=== PATIENT | female | born 1955 | race Caucasian/White ===

== ENCOUNTER 2017-08-06 12:14 | Inpatient (IN) | payer OTHER ==
[~2017-08-06] VITALS: Ht 152.4 cm; Wt 142.1 kg
[2017-08-06 13:16] LABS: BASOPHIL 0.6 % (0-2); EOSINOPHIL 3.4 % (0-5); HCT 40.2 % (37.0-47.0); HGB 13.4 g/dl (12.5-16.0); LYMPHOCYTE 33.3 % (15-48); MCH 30.4 pg (25.0-31.0); MCHC 33.3 g/dL (32.0-36.0); MCV 91.2 fL (78.0-100.0); MPV 9.8 fL (6.0-9.5); NEUTROPHIL 57.7 % (41-80); PLT 240 K/uL (150-400); RBC 4.41 M/uL (4.20-5.40); WBC 5.1 K/uL (4.0-10.5)
[2017-08-06 13:30] LABS: CREATININE 0.6 mg/dL (0.5-1.0); POTASSIUM 4.4 mmol/L (3.5-5.1)
[2017-08-06 14:49] LABS: INR 1.05 (0.9-1.2); PROTHROMBIN TIME 12.8 SECONDS (11.4-13.2)
[2017-08-06 14:50] LABS: PTT 27.9 SECONDS (24.3-32.1)
[2017-08-07 05:48] LABS: HCT 36.5 % (37.0-47.0); HGB 11.9 g/dl (12.5-16.0); MCH 30.1 pg (25.0-31.0); MCHC 32.6 g/dL (32.0-36.0); MCV 92.2 fL (78.0-100.0); MPV 9.9 fL (6.0-9.5); RBC 3.96 M/uL (4.20-5.40); RDW 12.8 % (11.5-14.0); WBC 3.6 K/uL (4.0-10.5)
[2017-08-07 06:05] LABS: CREATININE 1.4 mg/dL (0.5-1.0); MAGNESIUM 1.43 mg/dL (1.40-2.10); POTASSIUM 4.6 mmol/L (3.5-5.1)
== END 2017-08-07 09:53 | disposition other institution (70) | DRG 281 ==
LOC: FER 12:14 → FICU 14:40
PROVIDERS: Internal Medicine; ADMIT Internal Medicine
DX: I21.4 Non-ST elevation (NSTEMI) myocardial infarction (principal); N17.9 Acute kidney failure, unspecified; E11.22 Type 2 diabetes mellitus with diabetic chronic kidney disease; N18.3 Chronic kidney disease, stage 3 (moderate); I13.10 Hypertensive heart and chronic kidney disease without heart failure, with stage 1 through stage 4 chronic kidney disease, or unspecified chronic kidney disease; Z68.44 Body mass index [BMI] 60.0-69.9, adult; E66.9 Obesity, unspecified; J44.9 Chronic obstructive pulmonary disease, unspecified; D63.1 Anemia in chronic kidney disease; I25.10 Atherosclerotic heart disease of native coronary artery without angina pectoris; E78.5 Hyperlipidemia, unspecified; E03.9 Hypothyroidism, unspecified; F41.9 Anxiety disorder, unspecified; G89.4 Chronic pain syndrome; M19.90 Unspecified osteoarthritis, unspecified site; N20.0 Calculus of kidney; E53.8 Deficiency of other specified B group vitamins; Z90.5 Acquired absence of kidney; Z80.3 Family history of malignant neoplasm of breast; Z79.82 Long term (current) use of aspirin; Z80.8 Family history of malignant neoplasm of other organs or systems; Z83.3 Family history of diabetes mellitus; Z81.1 Family history of alcohol abuse and dependence; Z79.4 Long term (current) use of insulin; Z88.5 Allergy status to narcotic agent
CPT/HCPCS: 36415; 71010; 78452; 80048; 82550; 82962; 83735; 83880; 84484; 85025; 85610; 85730; 93005; 93970; 96372; A9500; J1170; J1885; J2270; J2405

== ENCOUNTER 2021-03-21 15:04 | Day surgery (SDCO) | payer MEDICARE, SELFPAY ==
[~2021-03-21] VITALS: Ht 153.7 cm; Wt 149.3 kg
[~2021-03-21 15:04] MED LIST: ACETAMINOPHEN325 MG PO; ALLOPURINOL300 MG PO; AMARYL2 MG PO; ASCORBIC ACID500 MG PO; ASPIRIN EC325 MG PO; AZITHROMYCIN250 MG PO; BYSTOLIC10 MG PO; CATAPRES0.1 MG PO; CERTAGEN1 EACH PO; COLACE100 MG PO; EFFEXOR XR75 MG PO; EFFEXOR-XR 75 M75 MG PO; FLUOXETINE HCL20 MG PO; HYDRALAZINE25 MG PO; IMDUR 30MG TABL30 MG PO; ISMO20 MG PO; KEFLEX250 MG PO; KLONOPIN0.5 MG PO; LACTINEX1 EACH PO; LANTUS **100 UNITS/ SC; LASIX40 MG PO; LAXATIVE; MIRALAX17 GM PO; NEURONTIN300 MG PO; NIFEREX150 MG PO; NITROQUIK SL0.4 MG SL; NOVOLOG VI100 UNIT/1 SQ; NOVOLOG100 UNIT/1 SC; NOXIFOL-D32500 UNIT PO; OXY-IR 5MG5 MG PO; PEPCID AC20 MG PO; PREVACID30 M1 PO; SYMBICORT 80-10.2 GM INH; SYNTHROID125 MCG PO; TRAZODONE 100M100 MG PO; TRAZODONE 50MG50 MG PO; TRIMETHOPRIM100 MG PO; ULTRAM50 MG PO; VENTOLIN HFA IN18 GM INH; VITAMIN D-32000 UNIT PO; VITAMIN D1000 UNI1 PO; Vitamin D3; ZINC50 M1 PO; ZPAK PO
[2021-03-21 16:15] LABS: BASOPHIL 0.7 % (0-2); EOSINOPHIL 3.4 % (0-5); HCT 36.4 % (37.0-47.0); HGB 11.8 g/dl (12.5-16.0); LYMPHOCYTE 36.8 % (15-48); MCH 30.4 pg (25.0-31.0); MCHC 32.4 g/dL (32.0-36.0); MCV 93.8 fL (78.0-100.0); MONOCYTE 6.9 % (0-12); NRBC 0; PLT 212 K/uL (150-400); RBC 3.88 M/uL (4.20-5.40); RDW 14.6 % (11.5-14.0); WBC 4.4 K/uL (4.0-10.5)
[2021-03-21 16:27] LABS: ALBUMIN 3.1 g/dL (3.4-5.0); BILIRUBIN - TOTAL 0.3 mg/dL (0.2-1.0); BUN/CREAT RATIO (CALC) 18.4 RATIO; CREATININE 1.25 mg/dL (0.51-0.95); GLOBULIN (CALCULATION) 3.3 g/dL; POTASSIUM 4.7 mmol/L (3.5-5.1); TOTAL PROTEIN 6.4 g/dL (6.4-8.2)
[2021-03-21 16:41] LABS: PRO-BNP 419 pg/mL (<125)
[2021-03-21 20:23] LABS: CORONAVIRUS 2019 SARS-COV-2 NEGATIVE (NEGATIVE); INFLUENZA A NAA NEGATIVE (NEGATIVE)
[2021-03-21] MEDS ORDERED: NORVASC 10MG TA10 MG PO (22:19)
[2021-03-21] MEDS ORDERED: PEPCID AC20 MG PO (22:19)
[2021-03-21] MEDS ORDERED: LASIX40 MG PO (22:20)
[2021-03-21] MEDS ORDERED: HYDRALAZINE25 MG PO (22:20)
[2021-03-21] MEDS ORDERED: ALLOPURINOL300 MG PO (22:20)
[2021-03-21] MEDS ORDERED: PROZAC20 MG PO (22:21)
[2021-03-21] MEDS ORDERED: TOPROL XL 25MG25 MG PO (22:22)
[2021-03-21] MEDS ORDERED: ISOSORBIDE MONO30 MG PO (22:22)
[2021-03-21] MEDS ORDERED: NEURONTIN300 MG PO (22:22)
[2021-03-21] MEDS ORDERED: ASCORBIC ACID500 MG PO (22:23)
[2021-03-21] MEDS ORDERED: CEFDINIR300 MG PO (22:23)
[2021-03-21] MEDS ORDERED: SINGULAIR10 MG PO (22:23)
[2021-03-21] MEDS ORDERED: AMARYL2 MG PO (22:24)
[2021-03-21] MEDS ORDERED: PHENERGAN6.25 MG/5 PO (22:26)
[2021-03-21] MEDS ORDERED: SYNTHROID125 MCG PO (22:27)
[2021-03-21] MEDS ORDERED: CRESTOR10 MG PO (22:27)
[2021-03-21] MEDS ORDERED: TRELEGY ELLIPT1 EAC1 INH (22:28)
[2021-03-21] MEDS ORDERED: ASPIRIN EC81 MG PO (22:28)
[2021-03-22 06:00] LABS: BASOPHIL 0.8 % (0-2); EOSINOPHIL 4.5 % (0-5); HCT 35.4 % (37.0-47.0); HGB 11.5 g/dl (12.5-16.0); LYMPHOCYTE 43.3 % (15-48); MCH 30.6 pg (25.0-31.0); MCHC 32.5 g/dL (32.0-36.0); MCV 94.1 fL (78.0-100.0); MONOCYTE 7.1 % (0-12); MPV 9.5 fL (6.0-9.5); NRBC 0; PLT 186 K/uL (150-400); RBC 3.76 M/uL (4.20-5.40); RDW 14.6 % (11.5-14.0); WBC 3.5 K/uL (4.0-10.5)
[2021-03-22 07:04] LABS: BUN/CREAT RATIO (CALC) 15.8 RATIO; CREATININE 1.2 mg/dL (0.51-0.95); POTASSIUM 4.7 mmol/L (3.5-5.1)
[2021-03-22 12:01] LABS: IRON % SATURATION 19.9 %SAT (20-50)
[2021-03-22 12:37] LABS: FT4 (FREE T4) 1.2 ng/dL (0.76-1.46)
[2021-03-22] MEDS ORDERED: NITROQUIK SL0.4 MG SL (13:45)
[2021-03-22] MEDS ORDERED: ISOSORBIDE MONO60 M1 PO (13:45)
--- NOTE | 2021-03-22 16:47 | NUR ---
DISCUSSED DISCHARGE INSTRUCTIONS WITH PATIENT. IV X 2 REMOVED. PT IN [place] CONDITTION. NOTIFIED OF APPOINTMENTS WELL STRESS TEST PENDING. GOING HOME WITH
== END 2021-03-22 16:30 | disposition home or self-care (01) ==
LOC: FER 15:04 → FMS 20:42
PROVIDERS: Emergency Medicine; Emergency Medicine Emergency Medical Services; Nurse Practitioner; ADMIT Internal Medicine
DX: R07.89 Other chest pain (principal); E11.40 Type 2 diabetes mellitus with diabetic neuropathy, unspecified; I12.9 Hypertensive chronic kidney disease with stage 1 through stage 4 chronic kidney disease, or unspecified chronic kidney disease; E11.22 Type 2 diabetes mellitus with diabetic chronic kidney disease; N18.30 Chronic kidney disease, stage 3 unspecified; G47.33 Obstructive sleep apnea (adult) (pediatric); R53.1 Weakness; J06.9 Acute upper respiratory infection, unspecified; I25.2 Old myocardial infarction; J44.9 Chronic obstructive pulmonary disease, unspecified; I42.9 Cardiomyopathy, unspecified; E03.9 Hypothyroidism, unspecified; M19.90 Unspecified osteoarthritis, unspecified site; M79.7 Fibromyalgia; E78.5 Hyperlipidemia, unspecified; R06.00 Dyspnea, unspecified; I77.819 Aortic ectasia, unspecified site; E66.01 Morbid (severe) obesity due to excess calories; Z86.73 Personal history of transient ischemic attack (TIA), and cerebral infarction without residual deficits; Z79.82 Long term (current) use of aspirin; Z79.84 Long term (current) use of oral hypoglycemic drugs; Z79.899 Other long term (current) drug therapy; Z88.1 Allergy status to other antibiotic agents; Z90.5 Acquired absence of kidney; Z20.822 Contact with and (suspected) exposure to COVID-19
CPT/HCPCS: 36415; 71045; 71275; 80048; 80053; 80061; 82607; 83540; 83550; 83880; 84439; 84443; 84484; 85025; 85379; 93005; G0378; J1650; J2270; J2405; J7030; Q9967; U0002

== ENCOUNTER 2021-07-14 17:22 | Emergency (ER) | payer MEDICARE ==
[~2021-07-14 17:22] MED LIST changes: +ASPIRIN EC81 MG PO; +CEFDINIR300 MG PO; +CRESTOR10 MG PO; +ISOSORBIDE MONO30 MG PO; +ISOSORBIDE MONO60 M1 PO; +NORVASC 10MG TA10 MG PO; +PHENERGAN6.25 MG/5 PO; +PROZAC20 MG PO; +SINGULAIR10 MG PO; +TOPROL XL 25MG25 MG PO; +TRELEGY ELLIPT1 EAC1 INH
[2021-07-14 19:55] LABS: BASOPHIL 0.8 % (0-2); EOSINOPHIL 3.7 % (0-5); HCT 35.2 % (37.0-47.0); HGB 11.5 g/dl (12.5-16.0); LYMPHOCYTE 23.1 % (15-48); MCH 29.7 pg (25.0-31.0); MCHC 32.7 g/dL (32.0-36.0); MONOCYTE 5.6 % (0-12); MPV 9.5 fL (6.0-9.5); NEUTROPHIL 65.8 % (41-80); NRBC 0; PLT 226 K/uL (150-400); RBC 3.87 M/uL (4.20-5.40); RDW 14.2 % (11.5-14.0); WBC 5.9 K/uL (4.0-10.5)
[2021-07-14 20:27] LABS: ALBUMIN 3.1 g/dL (3.4-5.0); BILIRUBIN - TOTAL 0.3 mg/dL (0.2-1.0); BUN/CREAT RATIO (CALC) 22.7 RATIO; CREATININE 1.41 mg/dL (0.51-0.95); GLOBULIN (CALCULATION) 3.7 g/dL; POTASSIUM 4.4 mmol/L (3.5-5.1); TOTAL PROTEIN 6.8 g/dL (6.4-8.2)
[2021-07-14 20:31] LABS: LACTIC ACID 1.8 mmol/L (0.4-1.9)
[2021-07-14 23:42] LABS: BILIRUBIN NEGATIVE (NEGATIVE); BLOOD NEGATIVE Ery/uL (NEGATIVE); CLARITY CLEAR (CLEAR); GLUCOSE (U) TRACE mg/dL (NORMAL); LEUKOCYTES TRACE Leu/uL (NEGATIVE); NITRITE POSITIVE (NEGATIVE); PROTEIN 1+ mg/dL (NEGATIVE); pH 5.5 (5.0-9.0)
[2021-07-14 23:43] LABS: COLOR ORANGE (YELLOW)
[2021-07-14 23:51] LABS: BACTERIA TRACE; URINARY RBC RARE; URINARY WBC RARE
[2021-07-14] MEDS ORDERED: CEPHALEXIN500 M1 PO (23:53)
[2021-07-14] MEDS ORDERED: PHENERGAN12.5 M1 PO (23:53)
[2021-07-14] MEDS ORDERED: NORCO 5-325 TA1 EACH PO ×2 (23:53→23:55)
== END 2021-07-15 00:12 | disposition home or self-care (01) ==
LOC: FER 17:22
PROVIDERS: Emergency Medicine Emergency Medical Services
DX: N30.00 Acute cystitis without hematuria (principal); I12.9 Hypertensive chronic kidney disease with stage 1 through stage 4 chronic kidney disease, or unspecified chronic kidney disease; N18.30 Chronic kidney disease, stage 3 unspecified; E11.22 Type 2 diabetes mellitus with diabetic chronic kidney disease; E78.5 Hyperlipidemia, unspecified; E66.01 Morbid (severe) obesity due to excess calories; J44.9 Chronic obstructive pulmonary disease, unspecified; Z90.49 Acquired absence of other specified parts of digestive tract; Z88.1 Allergy status to other antibiotic agents
CPT/HCPCS: 36415; 80053; 81001; 83605; 85025; 87088; J0696; J1170; J2550; J7030

== ENCOUNTER 2021-07-26 23:13 | Emergency (ER) | payer MEDICARE ==
[~2021-07-26 23:13] MED LIST changes: +CEPHALEXIN500 M1 PO; +NORCO 5-325 TA1 EACH PO; +PHENERGAN12.5 M1 PO
[2021-07-27 01:19] LABS: BASOPHIL 0.4 % (0-2); EOSINOPHIL 1.3 % (0-5); HCT 34.3 % (37.0-47.0); HGB 11.1 g/dl (12.5-16.0); LYMPHOCYTE 24.1 % (15-48); MCH 29.7 pg (25.0-31.0); MCHC 32.4 g/dL (32.0-36.0); MCV 91.7 fL (78.0-100.0); MPV 9.5 fL (6.0-9.5); NEUTROPHIL 66.8 % (41-80); NRBC 0; PLT 197 K/uL (150-400); RBC 3.74 M/uL (4.20-5.40); RDW 14.6 % (11.5-14.0); WBC 5.3 K/uL (4.0-10.5)
[2021-07-27 01:39] LABS: INR 1.01 (0.9-1.2); PROTHROMBIN TIME 12.7 SECONDS (11.8-13.4)
[2021-07-27 01:41] LABS: BILIRUBIN - TOTAL 0.3 mg/dL (0.2-1.0); BUN/CREAT RATIO (CALC) 20.9 RATIO; CREATININE 1.48 mg/dL (0.51-0.95); GLOBULIN (CALCULATION) 3.1 g/dL; POTASSIUM 4.3 mmol/L (3.5-5.1); TOTAL PROTEIN 6.1 g/dL (6.4-8.2)
[2021-07-27 01:59] LABS: BILIRUBIN NEGATIVE (NEGATIVE); BLOOD 2+ Ery/uL (NEGATIVE); CLARITY CLEAR (CLEAR); COLOR YELLOW (YELLOW); GLUCOSE (U) NORMAL (NORMAL); LEUKOCYTES 1+ Leu/uL (NEGATIVE); NITRITE NEGATIVE (NEGATIVE); PROTEIN 1+ mg/dL (NEGATIVE); UROBILINOGEN 0.2 mg/dL (0.2-1.0); pH 5.5 (5.0-9.0)
[2021-07-27 02:05] LABS: AMORPHOUS URATES CRYSTALS MODERATE; BACTERIA TRACE
[2021-07-27] MEDS ORDERED: AZITHROMYCIN250 MG PO (06:06)
[2021-07-27] MEDS ORDERED: AUGMENTIN 875-1 EACH PO (06:06)
== END 2021-07-27 07:01 | disposition home or self-care (01) ==
LOC: FER 23:13
PROVIDERS: Emergency Medicine
DX: M54.2 Cervicalgia (principal); J18.9 Pneumonia, unspecified organism; N39.0 Urinary tract infection, site not specified; M25.512 Pain in left shoulder; I25.10 Atherosclerotic heart disease of native coronary artery without angina pectoris; I10 Essential (primary) hypertension; J44.9 Chronic obstructive pulmonary disease, unspecified; E11.9 Type 2 diabetes mellitus without complications; Z79.01 Long term (current) use of anticoagulants; W01.10XA Fall on same level from slipping, tripping and stumbling with subsequent striking against unspecified object, initial encounter
CPT/HCPCS: 36415; 70450; 71250; 72125; 73030; 73060; 73080; 80053; 81001; 84484; 85025; 85610; 93005

== ENCOUNTER 2021-07-28 19:29 | Inpatient (IN) | payer MEDICARE ==
[~2021-07-28] VITALS: Ht 165.1 cm; Wt 146.6 kg
[~2021-07-28 19:29] MED LIST changes: +AUGMENTIN 875-1 EACH PO
[2021-07-28 20:29] LABS: BASOPHIL 0.3 % (0-2); EOSINOPHIL 0.6 % (0-5); HGB 11.4 g/dl (12.5-16.0); LYMPHOCYTE 20.7 % (15-48); MCH 29.7 pg (25.0-31.0); MCHC 32.6 g/dL (32.0-36.0); MCV 91.1 fL (78.0-100.0); MONOCYTE 8.3 % (0-12); MPV 9.8 fL (6.0-9.5); NEUTROPHIL 69.5 % (41-80); NRBC 0; PLT 207 K/uL (150-400); RBC 3.84 M/uL (4.20-5.40); RDW 14.5 % (11.5-14.0); WBC 3.6 K/uL (4.0-10.5)
[2021-07-28 20:35] LABS: INR 1.09 (0.9-1.2); PROTHROMBIN TIME 13.5 SECONDS (11.8-13.4); PTT 37.7 SECONDS (24.4-34.7)
[2021-07-28 20:36] LABS: D-DIMER 1.27 ug/mLFEU (0.00-0.41)
[2021-07-28 20:58] LABS: ALBUMIN 2.9 g/dL (3.4-5.0); BILIRUBIN - TOTAL 0.4 mg/dL (0.2-1.0); BUN/CREAT RATIO (CALC) 20.1 RATIO; C-REACTIVE PROTEIN 14.4 mg/dL (<=0.90); CREATININE 1.54 mg/dL (0.51-0.95); GLOBULIN (CALCULATION) 3.3 g/dL; MAGNESIUM 1.5 mg/dL (1.8-2.4); POTASSIUM 4.6 mmol/L (3.5-5.1); TOTAL PROTEIN 6.2 g/dL (6.4-8.2)
[2021-07-28 21:07] LABS: LACTIC ACID 1.1 mmol/L (0.4-1.9)
[2021-07-28 22:34] LABS: BILIRUBIN NEGATIVE (NEGATIVE); BLOOD 3+ Ery/uL (NEGATIVE); CLARITY CLEAR (CLEAR); COLOR YELLOW (YELLOW); GLUCOSE (U) NORMAL (NORMAL); LEUKOCYTES TRACE Leu/uL (NEGATIVE); NITRITE NEGATIVE (NEGATIVE); PROTEIN 2+ mg/dL (NEGATIVE); UROBILINOGEN 0.2 mg/dL (0.2-1.0)
[2021-07-28 22:41] LABS: AMORPHOUS URATES CRYSTALS MODERATE; BACTERIA 1+; SQUAMOUS EPITHELIAL CELLS RARE; URINARY WBC RARE
[2021-07-29 06:55] LABS: BASOPHIL 0.3 % (0-2); EOSINOPHIL 0 % (0-5); HCT 33.5 % (37.0-47.0); HGB 10.9 g/dl (12.5-16.0); LYMPHOCYTE 10.4 % (15-48); MCH 29.9 pg (25.0-31.0); MCHC 32.5 g/dL (32.0-36.0); MCV 91.8 fL (78.0-100.0); MONOCYTE 1.8 % (0-12); MPV 9.7 fL (6.0-9.5); NEUTROPHIL 86.9 % (41-80); NRBC 0; PLT 198 K/uL (150-400); RBC 3.65 M/uL (4.20-5.40); RDW 14.4 % (11.5-14.0); WBC 3.4 K/uL (4.0-10.5)
[2021-07-29 07:14] LABS: BUN/CREAT RATIO (CALC) 21.2 RATIO; CREATININE 1.56 mg/dL (0.51-0.95); POTASSIUM 5.1 mmol/L (3.5-5.1)
[2021-07-30 05:48] LABS: BASOPHIL 0.3 % (0-2); EOSINOPHIL 0 % (0-5); HCT 33.7 % (37.0-47.0); HGB 10.8 g/dl (12.5-16.0); MCH 29.2 pg (25.0-31.0); MCV 91.1 fL (78.0-100.0); MONOCYTE 5.6 % (0-12); MPV 9.5 fL (6.0-9.5); NEUTROPHIL 83.8 % (41-80); NRBC 0; PLT 222 K/uL (150-400); RETICULOCYTE COUNT 1.2 % (1.0-2.0); WBC 3.4 K/uL (4.0-10.5)
[2021-07-30 06:26] LABS: IRON % SATURATION 12.5 %SAT (20-50)
[2021-07-30 07:16] LABS: ALBUMIN 2.5 g/dL (3.4-5.0); BILIRUBIN - TOTAL 0.2 mg/dL (0.2-1.0); CREATININE 1.46 mg/dL (0.51-0.95); FOLIC ACID (SERUM) 6.9 ng/mL (8.6-58.9); GLOBULIN (CALCULATION) 3.3 g/dL; MAGNESIUM 1.8 mg/dL (1.8-2.4); POTASSIUM 4.7 mmol/L (3.5-5.1); TOTAL PROTEIN 5.8 g/dL (6.4-8.2)
[2021-07-31 05:51] LABS: BASOPHIL 0 % (0-2); EOSINOPHIL 0 % (0-5); HCT 33.7 % (37.0-47.0); HGB 10.7 g/dl (12.5-16.0); LYMPHOCYTE 14.8 % (15-48); MCHC 31.8 g/dL (32.0-36.0); MCV 91.3 fL (78.0-100.0); MONOCYTE 5.8 % (0-12); MPV 9.4 fL (6.0-9.5); NEUTROPHIL 78.3 % (41-80); NRBC 0; PLT 241 K/uL (150-400); RBC 3.69 M/uL (4.20-5.40); RDW 14.6 % (11.5-14.0); WBC 3.6 K/uL (4.0-10.5)
[2021-07-31 06:21] LABS: ALBUMIN 2.5 g/dL (3.4-5.0); BILIRUBIN - TOTAL 0.2 mg/dL (0.2-1.0); BUN/CREAT RATIO (CALC) 27.1 RATIO; CREATININE 1.18 mg/dL (0.51-0.95); GLOBULIN (CALCULATION) 3.8 g/dL; MAGNESIUM 1.7 mg/dL (1.8-2.4); PHOSPHORUS 2.8 mg/dL (2.6-4.7); POTASSIUM 4.7 mmol/L (3.5-5.1); TOTAL PROTEIN 6.3 g/dL (6.4-8.2)
[2021-08-01 06:58] LABS: BASOPHIL 0.3 % (0-2); EOSINOPHIL 0 % (0-5); HCT 36.4 % (37.0-47.0); HGB 11.6 g/dl (12.5-16.0); LYMPHOCYTE 30.1 % (15-48); MCH 29.5 pg (25.0-31.0); MCHC 31.9 g/dL (32.0-36.0); MCV 92.6 fL (78.0-100.0); MONOCYTE 8.8 % (0-12); MPV 9.5 fL (6.0-9.5); NRBC 0; PLT 255 K/uL (150-400); RBC 3.93 M/uL (4.20-5.40); RDW 14.8 % (11.5-14.0)
[2021-08-01 07:06] LABS: BUN/CREAT RATIO (CALC) 28.8 RATIO; C-REACTIVE PROTEIN 3.5 mg/dL (<=0.90); CREATININE 1.11 mg/dL (0.51-0.95); MAGNESIUM 1.7 mg/dL (1.8-2.4); POTASSIUM 4.5 mmol/L (3.5-5.1)
[2021-08-02 06:23] LABS: BASOPHIL 0 % (0-2); EOSINOPHIL 0 % (0-5); HGB 11.5 g/dl (12.5-16.0); MCH 29.3 pg (25.0-31.0); MCHC 31.9 g/dL (32.0-36.0); MCV 91.6 fL (78.0-100.0); MONOCYTE 10.2 % (0-12); MPV 9.3 fL (6.0-9.5); NRBC 0; PLT 239 K/uL (150-400); RBC 3.93 M/uL (4.20-5.40); RDW 14.6 % (11.5-14.0); WBC 3.3 K/uL (4.0-10.5)
[2021-08-02 06:26] LABS: LYMPHOCYTE 29.6 % (15-48)
[2021-08-02 06:50] LABS: MAGNESIUM 1.6 mg/dL (1.8-2.4); POTASSIUM 4.5 mmol/L (3.5-5.1)
--- NOTE | 2021-08-02 08:21 | NUR ---
[place] [id number], DR TORRES NOTIFIED, TO ORDER PATIENTS HOME BP MEDICATIONS
--- NOTE | 2021-08-02 08:22 | NUR ---
PATIENTS BP 212/97, DR BALBUENA NOTIFIED, TO ORDER PATIENTS HOME BP MEDICATIONS
--- NOTE | 2021-08-02 10:11 | NUR ---
S/W DR BALBUENA VIA TELEPHONE, PATIENTS NA 149, ON NS @ 125 CONTINOUS INFUSION. ORDERED TO D/C FLUIDS AT THIS TIME
--- NOTE | 2021-08-02 19:12 | NUR ---
1400 PATIENT URINATED ON SELF AND REFUSED TO GET UP TO BE CHANGED, THIS RN AT BEDSIDE AND EXPLAINED TO PATIENT WHY IT IS IMPORTANT TO GET CLEANED UP. PATIENT FINALLY AGREED AND THIS RN AND A FIBERGLASS LAMINATOR CLEANED PATIENT UP. PATIENT STATES SHE IS CONTINENT AT HOME AND THAT SHE KNOWS WHEN SHE HAS TO URINATE BUT DOES NOT FEEL LIKE GETTING UP TO THE BEDSIDE COMMODE. THIS RN EDUCATED PATIENT THAT SHE NEEDED TO GET UP AND MOVE TO HELP HER GET BETTER. PATIENT STATED OK.
[2021-08-03 06:24] LABS: BASOPHIL 0 % (0-2); EOSINOPHIL 0 % (0-5); HCT 35.2 % (37.0-47.0); HGB 11.6 g/dl (12.5-16.0); LYMPHOCYTE 24.5 % (15-48); MCH 29.4 pg (25.0-31.0); MCV 89.1 fL (78.0-100.0); MONOCYTE 9.7 % (0-12); MPV 9.6 fL (6.0-9.5); NEUTROPHIL 64.3 % (41-80); NRBC 0; PLT 258 K/uL (150-400); RBC 3.95 M/uL (4.20-5.40); RDW 14.6 % (11.5-14.0); WBC 4.5 K/uL (4.0-10.5)
[2021-08-03 06:38] LABS: ALBUMIN 2.7 g/dL (3.4-5.0); BILIRUBIN - TOTAL 0.5 mg/dL (0.2-1.0); BUN/CREAT RATIO (CALC) 37.6 RATIO; CREATININE 1.09 mg/dL (0.51-0.95); GLOBULIN (CALCULATION) 3.3 g/dL; MAGNESIUM 1.6 mg/dL (1.8-2.4); POTASSIUM 4.1 mmol/L (3.5-5.1)
[2021-08-03] MEDS ORDERED: DEXAMETHASONE 2M2 MG PO (12:36)
--- NOTE | 2021-08-03 13:51 | NUR ---
08/03/21 A referral was made to [facility] for 02 at 1 L.
[2021-08-04 06:36] LABS: BASOPHIL 0.2 % (0-2); EOSINOPHIL 0.2 % (0-5); HCT 34.5 % (37.0-47.0); HGB 11.4 g/dl (12.5-16.0); LYMPHOCYTE 18.8 % (15-48); MCH 29.2 pg (25.0-31.0); MCV 88.2 fL (78.0-100.0); MONOCYTE 8.4 % (0-12); MPV 10.2 fL (6.0-9.5); NEUTROPHIL 70.3 % (41-80); NRBC 0; PLT 325 K/uL (150-400); RBC 3.91 M/uL (4.20-5.40); RDW 14.5 % (11.5-14.0); WBC 6.1 K/uL (4.0-10.5)
[2021-08-04 14:50] LABS: BASOPHIL 0.3 % (0-2); EOSINOPHIL 0.2 % (0-5); HGB 12.1 g/dl (12.5-16.0); LYMPHOCYTE 9.4 % (15-48); MCH 29.7 pg (25.0-31.0); MCHC 30.3 g/dL (32.0-36.0); MONOCYTE 3.5 % (0-12); NEUTROPHIL 85.1 % (41-80); NRBC 0; RBC 4.07 M/uL (4.20-5.40); RDW 15.4 % (11.5-14.0); WBC 6.6 K/uL (4.0-10.5)
[2021-08-04 15:11] LABS: MCV 98.3 fL (78.0-100.0)
[2021-08-04 15:18] LABS: PLT 333 K/uL (150-400)
[2021-08-04 15:20] LABS: ALBUMIN 3.1 g/dL (3.4-5.0); BILIRUBIN - TOTAL 0.7 mg/dL (0.2-1.0); BUN/CREAT RATIO (CALC) 33.3 RATIO; CREATININE 1.05 mg/dL (0.51-0.95); GLOBULIN (CALCULATION) 2.6 g/dL; POTASSIUM 4.6 mmol/L (3.5-5.1); TOTAL PROTEIN 5.7 g/dL (6.4-8.2)
[2021-08-05] MEDS ORDERED: DEXAMETHASONE 2M2 MG PO (09:36)
--- NOTE | 2021-08-05 16:16 | NUR ---
SPOKE WITH MICAELA, DAUGHTER. SHE IS CONCEREND REGARDING CARING FOR HER MOTHER. SHE AND HER FAMILY WANT THEIR MOTHER PLACED IN A FACILITY. KENDELL AND I SPOKE WITH PT. SHE IS IN AGREEMENT FOR HER REFERRAL TO BE SENT TO [facility]. SHE UNDERSTANDS THIS IS 3 HOURS AWAY. SENT REFERRAL BUT WAS NOTIFIED BY [facility] THAT THEY ARE ON AN ADMISSIONS HOLD DUE TO HAVING THEIR OWN COVID PATIENTS WHO TOOK THE BEDS IN [facility] COVID UNIT. TC TO KENDELLLUIZ [phone]. ADVISED HER THAT THE ONLY COVID PLACEMENT IS ON AN ADMISSION'S HOLD. KENDELL IS GOING TO SPEAK WTIH HER FAMILY REGARDING PLACEMENT.
--- NOTE | 2021-08-05 17:10 | NUR ---
SPOKE WITH KENDELL SHE ADVISED SHE WILL HAVE HER SISTER CALL US. TC FROM KOJO, SISTER. SHE WAS ADVISED BY MYSELF AND ANEL THAT PT. HAS BEEN DISCHARGED. SHE WILL HAVE [facility] AND HOME O2. KOJO ADVISED TO HAVE [facility] CALL HER TO DELIVER THE HOME O2. KOJO WAS IN AGREEMENT AND SAID THAT SHE OR HER SISTER, KENDELL WOULD COME TO [place] [address] JUDGE HER MOTHER. ADVISED HER THAT [facility] CANNOT TAKE HER MOTHER AT THIS TIME, BUT PROVIDED PHONE NUMBER FOR FUTRE PLACEMENT NEED. ADVISED RK OF THIS INFORMATON.
--- NOTE | 2021-08-05 17:13 | NUR ---
ADVISED NURSEBASILIA OF THIS INFORMATION.
--- NOTE | 2021-08-05 17:14 | NUR ---
TC FROM PT. ADVISED HER THAT PLACMENT AT [facility] IS NOT AN OPTION. AND THAT SHE WILL BE GOING HOME WITH [facility] AND HOME O[facility].
== END 2021-08-05 19:30 | disposition home health service (06) | DRG 177 ==
LOC: FER 19:29 → FMS 07-29 00:31
PROVIDERS: Emergency Medicine; Family Medicine; Internal Medicine; Nurse Practitioner; Nurse Practitioner Adult Health; ADMIT Allergy & Immunology Allergy
PROC: 8E0ZXY6 Isolation (ICD-10-PCS; principal; 2021-07-29)
PROC: XW033E5 Introduction of Remdesivir Anti-infective into Peripheral Vein, Percutaneous Approach, New Technology Group 5 (ICD-10-PCS; 2021-07-29)
PROC: XW0DXM6 Introduction of Baricitinib into Mouth and Pharynx, External Approach, New Technology Group 6 (ICD-10-PCS; 2021-07-30)
DX: U07.1 COVID-19 (principal); J96.01 Acute respiratory failure with hypoxia; J12.82 Pneumonia due to coronavirus disease 2019; G93.41 Metabolic encephalopathy; Z68.43 Body mass index [BMI] 50.0-59.9, adult; J44.0 Chronic obstructive pulmonary disease with (acute) lower respiratory infection; I42.9 Cardiomyopathy, unspecified; Z66 Do not resuscitate; Z51.5 Encounter for palliative care; E66.01 Morbid (severe) obesity due to excess calories; D50.9 Iron deficiency anemia, unspecified; E11.22 Type 2 diabetes mellitus with diabetic chronic kidney disease; I12.9 Hypertensive chronic kidney disease with stage 1 through stage 4 chronic kidney disease, or unspecified chronic kidney disease; I27.20 Pulmonary hypertension, unspecified; E11.40 Type 2 diabetes mellitus with diabetic neuropathy, unspecified; G47.33 Obstructive sleep apnea (adult) (pediatric); N18.30 Chronic kidney disease, stage 3 unspecified; E03.9 Hypothyroidism, unspecified; M79.7 Fibromyalgia; F32.9 Major depressive disorder, single episode, unspecified; E55.9 Vitamin D deficiency, unspecified; M19.90 Unspecified osteoarthritis, unspecified site; I25.2 Old myocardial infarction; Z86.73 Personal history of transient ischemic attack (TIA), and cerebral infarction without residual deficits; Z99.81 Dependence on supplemental oxygen; Z86.711 Personal history of pulmonary embolism; Z79.01 Long term (current) use of anticoagulants; Z90.49 Acquired absence of other specified parts of digestive tract; Z90.5 Acquired absence of kidney; Z90.89 Acquired absence of other organs; Z98.890 Other specified postprocedural states; Z88.1 Allergy status to other antibiotic agents
CPT/HCPCS: 36415; 36600; 71250; 80048; 80053; 81001; 82607; 82728; 82746; 82803; 82962; 83540; 83550; 83605; 83615; 83735; 83880; 84100; 84145; 84484; 85025; 85379; 85610; 85730; 86140; 93005; 94010; 94640; 94667; 94668; 96372; 97163; 97166; 97530-GP; 97535; C9399; J0456; J1100; J1170; J1650; J1815; J2405; J2916; J3475; J7030; J7050; U0002

== ENCOUNTER 2022-05-08 16:55 | Emergency (ER) | payer MEDICARE ==
[~2022-05-08 16:55] MED LIST changes: +DEXAMETHASONE 2M2 MG PO
[2022-05-08 18:26] LABS: BILIRUBIN NEGATIVE (NEGATIVE); BLOOD TRACE-INTACT Ery/uL (NEGATIVE); CLARITY CLEAR (CLEAR); COLOR YELLOW (YELLOW); GLUCOSE (U) NORMAL (NORMAL); LEUKOCYTES NEGATIVE Leu/uL (NEGATIVE); NITRITE NEGATIVE (NEGATIVE); PROTEIN NEGATIVE (NEGATIVE); UROBILINOGEN 0.2 mg/dL (0.2-1.0)
[2022-05-08 19:00] LABS: URINARY WBC RARE
[2022-05-08 19:46] LABS: BASOPHIL 1.1 % (0-2); EOSINOPHIL 4.8 % (0-7); HCT 35.4 % (37.0-47.0); HGB 11.4 g/dl (12.5-16.0); LYMPHOCYTE 35.4 % (15-48); MCH 29.7 pg (25.0-31.0); MCHC 32.2 g/dL (32.0-36.0); MCV 92.2 fL (78.0-100.0); MPV 8.6 fL (6.0-9.5); NEUTROPHIL 53.5 % (41-80); NRBC 0; PLT 227 K/uL (150-400); RBC 3.84 M/uL (4.20-5.40); RDW 12.9 % (11.5-14.0); WBC 4.4 K/uL (4.0-10.5)
[2022-05-08 19:52] LABS: INR 1.76 (0.9-1.2); PROTHROMBIN TIME 19.7 SECONDS (11.8-13.4)
[2022-05-08 19:58] LABS: CREATININE 1.11 mg/dL (0.51-0.95); POTASSIUM 4.6 mmol/L (3.5-5.1)
[2022-05-08 20:08] LABS: LACTIC ACID 0.8 mmol/L (0.4-1.9)
== END 2022-05-08 23:16 | disposition home or self-care (01) ==
LOC: FER 16:55
PROVIDERS: Emergency Medicine
DX: R30.0 Dysuria (principal); R10.2 Pelvic and perineal pain; I12.9 Hypertensive chronic kidney disease with stage 1 through stage 4 chronic kidney disease, or unspecified chronic kidney disease; E11.22 Type 2 diabetes mellitus with diabetic chronic kidney disease; N18.30 Chronic kidney disease, stage 3 unspecified; I69.954 Hemiplegia and hemiparesis following unspecified cerebrovascular disease affecting left non-dominant side; E78.5 Hyperlipidemia, unspecified; Z28.311 Partially vaccinated for COVID-19; Z88.1 Allergy status to other antibiotic agents; Z79.899 Other long term (current) drug therapy; Z79.84 Long term (current) use of oral hypoglycemic drugs
CPT/HCPCS: 36415; 80048; 81001; 83605; 85025; 85610; 87088